=== PATIENT | female | born 1995 | race Caucasian/White ===

== ENCOUNTER 2023-04-15 21:44 | Emergency (ER) | payer SELFPAY ==
[~2023-04-15] VITALS: Ht 167.6 cm; Wt 66.8 kg
[2023-04-15 22:16] LABS: Basophils # (auto) 0.1 10 ^3/uL (0-0.2); Basophils % (auto) 0.3 % (0.0-2.0); Eosinophils # (auto) 0 10 ^3/uL (0-0.8); Eosinophils % (auto) 0.1 % (0.0-7.0); Hematocrit 45.5 % (36.0-46.0); Hemoglobin 15.5 g/dL (12.2-16.2); Lymphocytes # (auto) 0.7 10 ^3/uL (0.4-5.4); Mean Corpuscular Hgb Conc. 34.1 g/dL (32.0-36.0); Mean Corpuscular Volume 82.1 fL (80.0-100.0); Monocytes # (auto) 1.1 10 ^3/uL (0-1.3); Monocytes % (auto) 4.6 % (0.0-12.0); Neutrophils # (auto) 21.3 10 ^3/uL (1.6-8.6); Nucleated Red Blood Cells % 0.1 %; Red Blood Cells 5.54 10^6/uL (4.0-5.20); Red Cell Distribution Width 15.4 % (11.8-14.3); White Blood Cell 23.1 10^3/uL (4.4-10.8)
[2023-04-15] MEDS ORDERED: IOHEXOL 300 MG/ML 100ML BOTTLE IJ ONE (22:30)
[2023-04-15] MEDS ORDERED: KETOROLAC TROMETH 30 MG/ML 1ML VIAL IV ONE (22:30)
[2023-04-15] MEDS ORDERED: ONDANSETRON HCL 4 MG/2 ML VIAL IV ONE (22:30)
[2023-04-15 22:50] LABS: Albumin 4.4 g/dL (3.4-5.0); Calcium 9.7 mg/dL (8.5-10.1)
[2023-04-15 22:53] LABS: BUN/Creatinine Ratio 17.9 (10.0-20.0); Bilirubin, Total 0.7 mg/dL (0.2-1.0); Total Protein 8.8 g/dL (6.4-8.2)
[2023-04-16] MEDS ORDERED: PIPERACILLIN-TAZOB 3.375GM 100 ML IV ONE (01:15)
[2023-04-16] MEDS ORDERED: metroNIDAZOLE 500MG/100ML 100 ML IV ONE (01:15)
[2023-04-16] MEDS ORDERED: CIPR-173 PO (01:36)
[2023-04-16] MEDS ORDERED: METR375C PO (01:36)
[2023-04-16] MEDS ORDERED: ONDANSETRON HCL 4 MG/2 ML VIAL IV ONE (03:30)
[2023-04-16] MEDS ORDERED: KETOROLAC TROMETH 30 MG/ML 1ML VIAL IV ONE (03:30)
[2023-04-16 06:00] VITALS: BP 109/62
== END 2023-04-16 06:20 | disposition home or self-care (01) ==
LOC: ER 21:47
DX: K29.70 Gastritis, unspecified, without bleeding (principal); K52.9 Noninfective gastroenteritis and colitis, unspecified; Z90.89 Acquired absence of other organs; Z88.6 Allergy status to analgesic agent
CPT/HCPCS: 36415; 74177; 76856; 80053; 83605; 83690; 85025; 96365; 96366; 96367; 96375; 96376; 99285; J1885; J2405; J2543; J3490; Q9967